=== PATIENT | female | born 1970 | race Caucasian/White ===

== ENCOUNTER → 2017-05-10 | Outpatient (CLI) | payer BC ==
[2017-05-10 09:26] LABS: HEMATOCRIT 36.1 % (37-47); MEAN CELL VOLUME 97.8 fL (80-100); MEAN CORPUSCULAR HEMOGLOBIN 31.2 pg (25-34); MEAN CORPUSCULAR HGB CONC 31.9 g/dl (32-36); MEAN PLATELET VOLUME 10.1 fL (7.4-10.4); PLATELET COUNT 237 K/uL (130-400); RED BLOOD COUNT 3.69 M/uL (4.2-5.4); WHITE BLOOD COUNT 4.58 K/uL (4.8-10.8)
[2017-05-10 09:38] LABS: CALCIUM 8.1 mg/dl (8.5-10.1)
[2017-05-10 09:44] LABS: ALT/SGPT 29 U/L (12-78); BLOOD UREA NITROGEN 15 mg/dl (7-18); BUN/CREATININE RATIO 17.1 (10-20); CARBON DIOXIDE 24 mmol/L (21-32); CHLORIDE 108 mmol/L (98-107); CHOLESTEROL 171 mg/dl (0-200); CREATININE 0.87 mg/dl (0.60-1.20); GLUCOSE 91 mg/dl (70-99); POTASSIUM 4.2 mmol/L (3.5-5.1); SODIUM 141 mmol/L (136-145); TRIGLYCERIDES 47 mg/dl (0-150); VERY LOW DENSITY LIPOPROT CALC 9 mg/dl
[2017-05-10 09:47] LABS: ALB/GLOB RATIO 1.1 (0.9-2); ALKALINE PHOSPHATASE 37 U/L (45-117); AST/SGOT 18 U/L (15-37); CHOLESTEROL/HDL RATIO 2.3; HDL CHOLESTEROL 73 mg/dl; LDL CHOLESTEROL CALCULATED 89 mg/dl
== END | disposition home or self-care (01) ==
LOC: C.LAB 08:15
PROVIDERS: ATTEND Internal Medicine
DX: Z00.00 Encounter for general adult medical examination without abnormal findings (principal)

== ENCOUNTER → 2017-05-19 | Outpatient (CLI) | payer BC ==
[2017-05-19 13:31] LABS: TOTAL IRON BINDING CAPACITY 334 mcg/dl (250-450)
[2017-05-19 14:52] LABS: LYME DISEASE AB IGG NEG (NEG)
[2017-05-19 14:56] LABS: LYME DISEASE AB IGM NEG (NEG)
== END | disposition home or self-care (01) ==
LOC: C.LAB 12:12
PROVIDERS: ATTEND Internal Medicine
DX: D64.9 Anemia, unspecified (principal); T14.8 Other injury of unspecified body region; W57.XXXA Bitten or stung by nonvenomous insect and other nonvenomous arthropods, initial encounter

== ENCOUNTER → 2017-09-07 | Outpatient (CLI) | payer BC | END | disposition home or self-care (01) | LOC: C.PAPS 15:55 | PROVIDERS: ATTEND Physician Assistant | DX: Z01.419 Encounter for gynecological examination (general) (routine) without abnormal findings (principal) ==

== ENCOUNTER → 2017-10-04 | Outpatient (CLI) | payer BC ==
--- NOTE | 2017-10-04 15:20 | MAMMOGRAPHY REPORT ---
BILATERAL FIRST EVER DIGITAL SCREENING MAMMOGRAM TOMOSYNTHESIS WITH CAD: 10/04/2017 CLINICAL HISTORY: Routine screening. Baseline exam. TECHNIQUE: Breast tomosynthesis in addition to standard 2D mammography was performed. Current study was also evaluated with a Computer Aided Detection (CAD) system. COMPARISON: No prior exams were available for comparison. BREAST COMPOSITION: The tissue of both breasts is heterogeneously dense, which may obscure small mas ses. FINDINGS: No suspicious masses, calcifications, or areas of architectural distortion are noted in ei ther breast. IMPRESSION: ACR BI-RADS CATEGORY 1: NEGATIVE There is no mammographic evidence of malignancy. A 1 year screening mammogram is recommended. The pa tient will receive written notification of the results. Approximately 10% of breast cancers are not detected with mammography. A negative mammographic report should not delay biopsy if a clinically suggestive mass is present. Shanique Don M.D. ah/:10/04/2017 15:08:50 Traffic Engineer: Rosmery LEIVA)(Kaylin), [facility] letter sent: Normal 1/2 BI-RADS Code: ACR BI-RADS Category 1: Negative
== END | disposition home or self-care (01) ==
LOC: C.MAMM 13:19
PROVIDERS: ATTEND Internal Medicine
DX: Z12.31 Encounter for screening mammogram for malignant neoplasm of breast (principal)

== ENCOUNTER → 2018-03-02 | Outpatient (CLI) | payer BC ==
[2018-03-02 13:48] LABS: BASO % 0.5 %; BASO ABS # 0.02 K/uL (0-0.2); EOS % 2.7 %; EOS ABS # 0.12 K/uL (0-0.5); HEMATOCRIT 36.3 % (37-47); IG# 0.01 K/uL (0.00-0.02); LYMPH % 31.8 %; LYMPH ABS # 1.39 K/uL (1.2-3.4); MEAN CELL VOLUME 95.5 fL (80-100); MEAN CORPUSCULAR HEMOGLOBIN 31.6 pg (25-34); MEAN CORPUSCULAR HGB CONC 33.1 g/dl (32-36); MEAN PLATELET VOLUME 10.2 fL (7.4-10.4); MONO % 9.2 %; NEUT % 55.6 %; NEUT ABS # 2.43 K/uL (1.4-6.5); PLATELET COUNT 249 K/uL (130-400); RED CELL DISTRIBUTION WIDTH CV 13.5 % (11.5-14.5); RED CELL DISTRIBUTION WIDTH SD 47.1 fL (36.4-46.3); WHITE BLOOD COUNT 4.37 K/uL (4.8-10.8)
[2018-03-02 13:51] LABS: INR 0.9 (0.9-1.1)
[2018-03-02 14:26] LABS: ALT/SGPT 356 U/L (12-78); AST/SGOT 134 U/L (15-37); BLOOD UREA NITROGEN 17 mg/dl (7-18); CALCIUM 8.9 mg/dl (8.5-10.1); CARBON DIOXIDE 24 mmol/L (21-32); CREATININE 0.89 mg/dl (0.60-1.20); GLUCOSE 99 mg/dl (70-99); POTASSIUM 4.4 mmol/L (3.5-5.1); SODIUM 138 mmol/L (136-145)
[2018-03-02 14:30] LABS: ALKALINE PHOSPHATASE 146 U/L (45-117); TOTAL PROTEIN 7.3 gm/dl (6.4-8.2); TRANSFERRIN 328 mg/dl (200-360)
[2018-03-02 16:33] LABS: HEP C IGG 13 YRS+OLDER_RFLX NEG (NEG)
[2018-03-06 09:01] LABS: ANA SCREEN TC 249X NEGATIVE (NEGATIVE); HEPATITIS A IGM TC 51813E NON-REACTIVE (NON-REACTIVE); HEPATITIS B CORE IGM TC51854R NON-REACTIVE (NON-REACTIVE)
== END | disposition home or self-care (01) ==
LOC: C.LAB1850 12:21
PROVIDERS: ATTEND Physician Assistant
DX: R23.3 Spontaneous ecchymoses (principal); L29.9 Pruritus, unspecified

== ENCOUNTER 2025-06-26 07:21 | Inpatient (IN) ==
[2025-06-26] MEDS: SODIUM CHLORIDE 0.9% 1,000 ML IV STA (07:36)
[2025-06-26] MEDS: ALBUT/IPRATROP 3MG/0.5MG NEB 3 ML VIAL NEB STA (07:37)
--- NOTE | 2025-06-26 07:40 | Emergency Department Note ---
Impression & Plan Hypoxia, Acute respiratory failure, Elevated troponin ED Provider Note CHIEF COMPLAINT: Shortness of breath HISTORY OF PRESENTING ILLNESS: The patient is a 55-year-old female who arrives to the emergency department for evaluation of acute onset shortness of breath. The patient states she was seen on June 24 for a kidney stone, and discharged home. Patient received 2 L normal saline, with trial of passage. She reports she also received IV morphine, and had a home pack of oxycodone provided. She states she noted some increasing shortness of breath over the last day. She reports today she was unable to ambulate without significant shortness of breath. She also reports she is feeling her heart racing. She is unable to speak in full sentences due to severe shortness of breath. She reports no cardiac, or respiratory history. She denies oxygen use at home. REVIEW OF SYSTEMS: See HPI for pertinent positives and pertinent negatives. ALLERGIES: See below MEDICATIONS: See below PAST MEDICAL HISTORY: See below PHYSICAL EXAM: VITALS: Vitals are noted on the nurse's note and reviewed by myself. Vital signs stable. GENERAL: 55-year-old female, in moderate acute distress, nondiaphoretic, well- developed well-nourished. SKIN: The skin was without rashes, erythema, edema, or bruising. HEAD: Normocephalic atraumatic. NECK: Supple without nuchal rigidity. No lymphadenopathy. Cervical spine is nontender. No JVD. HEART: Tachycardia with regular rhythm without murmurs gallops or rubs. LUNGS: Diminished lung sounds throughout, wheezing noted in the left apex. ABDOMEN: Positive bowel sounds x 4. Soft, nontender, without masses or organomegaly. Best sign negative. No guarding or rebound tenderness. MUSCULOSKELETAL: No muscle atrophy, erythema, or edema noted. Normal gait. Strength 5/5 throughout. NEURO: Patient was alert and oriented to person place and time. No focal neurological deficits. DIFFERENTIAL DIAGNOSIS: Reactive airway disease, pneumonia, pneumothorax, COPD, CHF, infections, cardiac ischemia, pulmonary embolism, musculoskeletal, gastrointestinal, as well as other pathologies. ED COURSE AND MEDICAL DECISION MAKING: HISTORY FROM INDEPENDENT HISTORIAN: Family at bedside serving as secondary historian. MEDICATIONS GIVEN: DuoNeb, 125 Solu-Medrol, 40 mg IV Lasix, 4 mg IV Zofran. MONITOR: Continuous threat monitoring analyst: Order was placed for continuous threat monitoring analyst. Patient was placed on the threat monitoring analyst and continuous pulse ox. Patient was noted to be in normal sinus rhythm at an initial rate of 119 bpm per my interpretation. EKG: EKG was interpreted by myself as sinus tachycardia at a rate of 119 bpm, no ST elevation, or depression. Previous for comparison from June 24, 2025 shows the ventricular rate has increased by 39 bpm. INTERPRETATION OF LABS: I interpreted the labs with full lab results as below in the lab section of this note. Pertinent lab results discussed in the MDM section below. INTERPRETATION OF IMAGING: Imaging studies were interpreted by myself and read by radiology as per the imaging section of this note. MDM SUMMARY: The patient is a pleasant, 55-year-old female who arrives to the emergency department for evaluation of the above-stated complaint. Patient was visibly in distress upon arrival. She was immediately placed on nasal cannula. Saline lock was established, lab work was obtained. CBC shows no leukocytosis, with a slight anemia. New thrombocytopenia present, 58. Previous on 03/21/1952. PT/INR, 13.0/1.2, PTT 38. D-dimer obtained 29,480. CMP shows slight hyponatremia at 132. Anion gap 13, BUN 44, creatinine 2.54 consistent with JAE. Calcium 8.1, total bilirubin 1.7, alkaline phosphatase 225. Initial troponin 900, repeat 747.4, BNP 1084. Upper respiratory viral panel negative. Upon initial examination, the patient was wheezing and provided a DuoNeb treatment, as well as IV steroids. Chest x-ray per my interpretation showed findings consistent with right pleural effusion. The patient began to decline on nasal cannula and was placed on BiPAP. 40 mg of IV Lasix was administered, as well as 4 mg of IV Zofran. CTA imaging of the chest was obtained, to rule out pulmonary embolism, which showed trace pleural effusions, mild interstitial pulmonary edema, and low suspicion solid pulmonary nodules. CT imaging of the abdomen and pelvis was obtained, which shows the previously noted 5 mm right renal calculus which was now passed into the urinary bladder. There is mild right hydronephrosis, however improved. The patient was admitted to the [facility] hospitalist group for further evaluation and treatment. Please refer to their documentation for further patient care. DIAGNOSIS: Hypoxia, respiratory failure, elevated troponin I have personally spent greater than 30 minutes of critical care time in the direct management of this patient. This includes bedside care, interpretation of diagnostic studies, and testing, discussion with consultants, patient, and family members, and other required patient management activities. This 30 minutes is in excess of all separately billable procedures. The chart was completed utilizing [employer] Speech voice recognition software. Grammatical errors, random word insertions, pronoun errors, and incomplete sentences are an occasional consequence of this system due to software limitations, ambient noise, and hardware issues. Any formal questions or concerns about the content, text, or information contained within the body of this dictation should be directly addressed to the provider for clarification. Past Med/Surg History Problem List (Updated 06/28/25 @ 17:46 by TOMMY Curtis) Elevated troponin (Acute) Acute respiratory failure (Acute) Hypoxia (Acute) Bacteremia Acute hypoxic respiratory failure DIC (disseminated intravascular coagulation) Thrombocytopenia JAE (acute kidney injury) Hypoxemia Left thyroid nodule FH: thyroid disease Goiter Palpitations Tubular adenoma of colon Esophageal dysphagia Arthritis of both knees Chiari malformation type I (Acute) Aqueductal stenosis (Acute) Anemia (Acute) Abnormal liver function SOB (shortness of breath) Medical History Ureterolithiasis Skin abrasion Dizziness History of colon polyps Abdominal discomfort PAIN UNDER RIGHT SIDE OF RIBS - REASON FOR UPCOMING PROCEDURE Bloating REASON FOR UPCOMING PROCEDURE Indigestion REASON FOR UPCOMING PROCEDURE Chiari malformation PT DENIES Elevated LFTs PT DENIES Surgical History History of colonoscopy History of oral surgery Family History Mother Heart disease Stroke Father Heart disease Denies family history of Ovarian cancer Diabetes Myocardial infarction Breast cancer Colorectal cancer Social History Smoking Status: Never smoker Second Hand Exposure: No; Do You Dip or Chew Tobacco: No; Hx Alcohol Use: Yes Alcohol type: hard liquor Hx Substance Use: No Preferred Language: [place] Communication Ability: Effective Visual Impairment: No Limitations Hearing Ability: Normal Economics Department Chair Required: No Beliefs That Will Affect Care: None marital status: Current Living Situation: Spouse Current Living Situation Comment: 2 story house current occupational status: employed current occupation: self employed Feels Safe at Home: Yes Childhood Exposure to Second-Hand Smoke: No Physical Activity Frequency: 3-4 Times per Week Seatbelt Use: always Assistive Devices: None Allergies Allergies Allergy/AdvReac Type Severity Reaction Status Date / Time No Known Allergies Allergy Verified 06/26/25 09:17 Home Meds Home Medications Medication Instructions Recorded Confirmed lisinopril 10 mg tablet 10 mg PO DAILY 06/26/25 06/26/25 meloxicam 7.5 mg tablet 7.5 mg PO DAILY PRN Pain 06/26/25 06/26/25 Previous Rx's Medication Instructions Recorded cefdinir 300 mg capsule 300 mg PO Q12H #24 caps 06/28/25 Results & Data (ED) Vital Signs Vital Signs - 24 hr 06/26/25 07:22 06/26/25 07:22 06/26/25 07:22 Temperature 36.6 C Temperature Source Temporal Artery Scan Pulse Rate 119 H Pulse Rate [Apical] Respiratory Rate 18 Respiratory Effort / Characteristics Respiratory Depth Respiratory Pattern Blood Pressure 140/93 Blood Pressure [Right Arm] Blood Pressure Mean 108 Blood Pressure Mean [Right Arm] Blood Pressure Position [Right Arm] Pulse Oximetry 91 82 L 82 L Oxygen Delivery Method Room Air Room Air Oxygen Flow Rate Fraction of Inspired Oxygen Sepsis Recent Fever Within 48 Hours No Sepsis New/Unexplained Change in Mental Status N/A Sepsis Action Taken by Nursing No Action Required 06/26/25 07:28 06/26/25 07:30 06/26/25 07:53 Temperature Temperature Source Pulse Rate 119 H Pulse Rate [Apical] Respiratory Rate Respiratory Effort / Characteristics Respiratory Depth Respiratory Pattern Blood Pressure Blood Pressure [Right Arm] Blood Pressure Mean Blood Pressure Mean [Right Arm] Blood Pressure Position [Right Arm] Pulse Oximetry 95 79 L Oxygen Delivery Method Nasal Cannula Nebulizer Oxygen Flow Rate 6 Fraction of Inspired Oxygen Sepsis Recent Fever Within 48 Hours Sepsis New/Unexplained Change in Mental Status Sepsis Action Taken by Nursing 06/26/25 07:53 06/26/25 07:57 06/26/25 07:58 Temperature Temperature Source Pulse Rate 113 H Pulse Rate [Apical] 111 H Respiratory Rate 30 H Respiratory Effort / Characteristics Non-Labored Spontaneous Respiratory Depth Normal Respiratory Pattern Tachypnea Blood Pressure Blood Pressure [Right Arm] 148/103 H Blood Pressure Mean Blood Pressure Mean [Right Arm] 118 Blood Pressure Position [Right Arm] Semi-fowlers Pulse Oximetry 99 99 98 Oxygen Delivery Method Non-rebreather BiPAP Oxygen Flow Rate 15 Fraction of Inspired Oxygen 40 Sepsis Recent Fever Within 48 Hours Sepsis New/Unexplained Change in Mental Status Sepsis Action Taken by [facility] Medications Current Medication List: was personally reviewed by me Laboratory Data Attestation: I reviewed the patient's lab results. 06/28/25 06:00 06/28/25 06:00 Lab Results 06/26/25 06/26/25 06/26/25 Range/Units 07:40 08:09 09:16 WBC 7.17 (4.8-10.8) K/ul RBC 3.71 L (4.20-5.40) M/uL Hgb 11.4 L (12.0-16.0) g/dl Hct 33.5 L (37.0-47.0) % MCV 90.3 (80.0-100.0) fL MCH 30.7 (25.0-34.0) pg MCHC 34.0 (32.0-36.0) g/dL RDW Std Deviation 43.9 (36.4-46.3) fL RDW Coeff of Sebastian 13.3 (11.5-14.5) % Plt Count 58 L (130-400) K/uL MPV 10.2 (9.4-12.4) fL Immature Gran % (Auto) 0.3 % Neut % (Auto) 92.1 % Lymph % (Auto) 4.9 % Shoshone % (Auto) 1.8 % Eos % (Auto) 0.1 % Baso % (Auto) 0.8 % Neut # (Auto) 6.60 H (1.40-6.50) K/uL Lymph # (Auto) 0.35 L (1.20-3.40) K/uL Shoshone # (Auto) 0.13 (0.11-0.59) K/uL Eos # (Auto) 0.01 (0.00-0.50) K/uL Baso # (Auto) 0.06 (0.00-0.20) K/uL Immature Gran # (Auto) 0.02 (0.01-0.20) K/uL Absolute Nucleated RBC 0.02 (0.00-0.12) K/uL Nucleated RBC % (auto) 0.3 % Toxic Granulation 3+ Toxic Vacuolation 3+ Dohle Bodies 2+ Platelet Estimate Decreased L (Normal) Polychromasia 1+ PT 13.0 H (9.0-12.0) Seconds INR 1.2 H (0.9-1.1) APTT 38 H (21-31) Seconds PTT Ratio 1.4 D-Dimer 38228 H* (0-500) ug/L FEU Sodium 132 L (136-145) mmol/L Potassium 3.7 (3.5-5.1) mmol/L Chloride 99 (98-107) mmol/L Carbon Dioxide 20 L (21-32) mmol/L Anion Gap 13 H (3-11) BUN 44 H (6-23) mg/dl Creatinine 2.54 H (0.6-1.2) mg/dl Est Cr Clr Drug Dosing 31.3 ml/min eGFR 21.74 BUN/Creatinine Ratio 17.3 (10-20) Glucose 89 (70-99(Fasting)) mg/dl Calcium 8.1 L (8.6-10.3) mg/dl Total Bilirubin 1.7 H (0.2-1.0) mg/dl AST 39 (13-39) U/L ALT 30 (7-52) U/L Alkaline Phosphatase 225 H (34-104) U/L Troponin I High Sens 900.1 H* 747.4 H* (0-14) pg/ml B-Natriuretic Peptide 1084 H (0-100) pg/ml Total Protein 6.6 (6.0-8.3) gm/dl Albumin 3.6 (3.4-5.0) gm/dl Globulin 3.0 (2.5-4.0) gm/dl Albumin/Globulin Ratio 1.2 (0.9-2) Lipase 5 L (11-82) U/L Adenovirus (PCR) Not Detected (NotDetected) B. pertussis DNA (PCR) Not Detected (NotDetected) B.parapertussis DNA PCR Not Detected (NotDetected) C. pneumoniae DNA (PCR) Not Detected (NotDetected) Coronavirus OC43 (PCR) Not Detected (NotDetected) Coronavirus HKU1 (PCR) Not Detected (NotDetected) Coronavirus 229E (PCR) Not Detected (NotDetected) SARS-CoV-2 (PCR) Not Detected (NotDetected) Coronavirus NL63 (PCR) Not Detected (NotDetected) Human Metapneumovir PCR Not Detected (NotDetected) Influenza Type A (PCR) Not Detected (NotDetected) Influenza Type B (PCR) Not Detected (NotDetected) M. pneumoniae (PCR) Not Detected (NotDetected) Parainfluenza 1 (PCR) Not Detected (NotDetected) Parainfluenza 2 (PCR) Not Detected (NotDetected) Parainfluenza 3 (PCR) Not Detected (NotDetected) Parainfluenza 4 (PCR) Not Detected (NotDetected) RSV (PCR) Not Detected (NotDetected) Entero/Rhino (PCR) Not Detected (NotDetected) Administered Medications Discontinued Medications Albuterol (Albut/Ipratrop 3mg/0.5mg Neb 3 Ml Vial) Confirm Administered Dose 3 ml .ROUTE .STK-MED ONE Stop: 06/26/25 07:31 Last Admin: 06/26/25 07:41 Dose: Not Given Documented By: LIZANDRO Albuterol (Albut/Ipratrop 3mg/0.5mg Neb 3 Ml Vial) 3 ml NEB NOW STA; Protocol Stop: 06/26/25 07:33 Last Admin: 06/26/25 07:37 Dose: 3 ml Documented By: LISA Furosemide (Furosemide 40 Mg/4 Ml Vial) 40 mg IV ONE ONE Stop: 06/26/25 07:52 Last Admin: 06/26/25 08:02 Dose: 40 mg Documented By: farshad Sodium Chloride (Nss) 1,000 mls @ 999 mls/hr IV .Q1H1M STA Stop: 06/26/25 08:28 Last Infusion: 06/26/25 16:55 Dose: Infused Documented By: Infusion: 06/26/25 08:11 Dose: 0 mls/hr Documented By: Admin: 06/26/25 07:36 Dose: 999 mls/hr Documented By: LISA Famotidine (Pepcid 20mg Iv Push) 20 mg in 5 mls @ 2.5 mls/min IV Q12H JESSICA Stop: 07/27/25 00:00 Last Admin: 06/28/25 11:45 Dose: 2.5 mls/min Documented By: Admin: 06/27/25 23:04 Dose: 2.5 mls/min Documented By: Admin: 06/27/25 11:37 Dose: 2.5 mls/min Documented By: Admin: 06/27/25 00:57 Dose: 2.5 mls/min Documented By: YOAV Famotidine (Pepcid 20mg Iv Push) 20 mg in 5 mls @ 2.5 mls/min IV NOW STA Stop: 06/26/25 12:00 Last Admin: 06/26/25 13:42 Dose: Not Given Documented By: LOUISA Prochlorperazine 5 mg/ Syringe 5 mls @ 5 mls/min IV Q6H PRN PRN Reason: Breakthrough Nausea/Vomiting Stop: 07/26/25 11:55 Last Admin: 06/26/25 15:22 Dose: 5 mls/min Documented By: JOE Pantoprazole Sodium (Protonix) 40 mg in 10 mls @ 5 mls/min IV DAILY JESSICA Stop: 07/27/25 08:59 Last Admin: 06/28/25 08:48 Dose: 5 mls/min Documented By: Admin: 06/27/25 08:07 Dose: 5 mls/min Documented By: SHAMEKA Sodium Chloride (Nss) 1,000 mls @ 125 mls/hr IV .Q8H JESSICA Stop: 06/27/25 07:05 Last Infusion: 06/27/25 08:15 Dose: Infused Documented By: Admin: 06/27/25 00:57 Dose: 150 mls/hr Documented By: Infusion: 06/27/25 00:13 Dose: Infused Documented By: Admin: 06/26/25 17:32 Dose: 150 mls/hr Documented By: JOE Piperacillin Sod/Tazobactam Sod (Zosyn) 4.5 gm in 100 mls @ 25 mls/hr IV Q8H JESSICA; Protocol Stop: 06/29/25 05:59 Last Infusion: 06/28/25 10:15 Dose: Infused Documented By: Admin: 06/28/25 05:19 Dose: 25 mls/hr Documented By: Infusion: 06/28/25 01:10 Dose: Infused Documented By: Admin: 06/27/25 21:08 Dose: 25 mls/hr Documented By: Infusion: 06/27/25 17:56 Dose: Infused Documented By: Admin: 06/27/25 13:43 Dose: 25 mls/hr Documented By: Infusion: 06/27/25 10:30 Dose: Infused Documented By: Admin: 06/27/25 06:28 Dose: 25 mls/hr Documented By: HDC Piperacillin Sod/Tazobactam Sod (Zosyn) 4.5 gm in 100 mls @ 200 mls/hr IV ONE ONE; Protocol Stop: 06/26/25 23:59 Last Infusion: 06/27/25 02:31 Dose: Infused Documented By: Admin: 06/27/25 00:56 Dose: 200 mls/hr Documented By: HDC Ceftriaxone Sodium (Rocephin) 2,000 mg in 50 mls @ 100 mls/hr IV NOW STA Stop: 06/28/25 11:46 Last Infusion: 06/28/25 12:45 Dose: Infused Documented By: Admin: 06/28/25 11:45 Dose: 100 mls/hr Documented By: OO Ioversol (Optiray 320 125ml) 119 ml IV ONCE ONE Stop: 06/26/25 10:40 Last Admin: 06/26/25 10:39 Dose: 119 ml Documented By: SAMI Methylprednisolone (Methylprednisolone 125 Mg/2 Ml Vial) Confirm Administered Dose 125 mg .ROUTE .STK-MED ONE Stop: 06/26/25 07:31 Last Admin: 06/26/25 07:41 Dose: Not Given Documented By: LIZANDRO Methylprednisolone (Methylprednisolone 125 Mg/2 Ml Vial) 125 mg IV NOW STA Stop: 06/26/25 07:33 Last Admin: 06/26/25 07:37 Dose: 125 mg Documented By: LISA Ondansetron HCl (Ondansetron Inj 2 Mg/Ml 2 Ml Vial) 4 mg IV NOW STA Stop: 06/26/25 09:10 Last Admin: 06/26/25 09:12 Dose: 4 mg Documented By: LOUISA Ondansetron HCl (Ondansetron Inj 2 Mg/Ml 2 Ml Vial) 4 mg IV Q6H JESSICA Stop: 07/26/25 13:28 Last Admin: 06/28/25 08:49 Dose: Not Given Documented By: Admin: 06/28/25 01:55 Dose: 4 mg Documented By: Admin: 06/27/25 21:08 Dose: 4 mg Documented By: Admin: 06/27/25 13:43 Dose: 4 mg Documented By: Admin: 06/27/25 08:08 Dose: 4 mg Documented By: Admin: 06/27/25 02:35 Dose: 4 mg Documented By: Admin: 06/26/25 20:30 Dose: 4 mg Documented By: Admin: 06/26/25 14:29 Dose: 4 mg Documented By: MMF Imaging Data Attestation: I personally reviewed and interpreted this imaging study as follows: Discharge Plan Visit Data Patient Disposition: Admitted As Inpatient Condition: Critical Discharge Instructions Interventions: ED Discharge Assessment Last Done: 06/26/25 13:30
[2025-06-26] MEDS: ALBUT/IPRATROP 3MG/0.5MG NEB 3 ML VIAL ONE (07:41)
[2025-06-26] MEDS: FUROSEMIDE 40 MG/4 ML VIAL IV ONE (08:02)
[2025-06-26 08:11] LABS: INR 1.2 (0.9-1.1); Partial Thromboplastin Time 38 Seconds (21-31); Prothrombin Time 13.0 Seconds (9.0-12.0)
[2025-06-26 08:37] LABS: Alanine Aminotransferase 30.0 U/L (7-52); Albumin Globulin Ratio 1.2 (0.9-2); Alkaline Phosphatase 225.0 U/L (34-104); Anion Gap 13.0 (3-11); Bilirubin,Total 1.7 mg/dl (0.2-1.0); Blood Urea Nitrogen 44.0 mg/dl (6-23); Calcium 8.1 mg/dl (8.6-10.3); Carbon Dioxide 20.0 mmol/L (21-32); Chloride 99.0 mmol/L (98-107); Creatinine Clr Calc Pharmacy 31.3 ml/min; Globulin 3.0 gm/dl (2.5-4.0); Glucose 89.0 mg/dl (70-99(Fasting)); Lipase 5.0 U/L (11-82); Potassium 3.7 mmol/L (3.5-5.1); Sodium 132.0 mmol/L (136-145); Total Protein 6.6 gm/dl (6.0-8.3)
[2025-06-26 08:38] LABS: Hematocrit (blood only) 33.5 % (37.0-47.0); Hemoglobin 11.4 g/dl (12.0-16.0); Mean Corpuscular Hemoglobin 30.7 pg (25.0-34.0); Mean Corpuscular Volume 90.3 fL (80.0-100.0); Platelet Count 58 K/uL (130-400); RDW Standard Deviation 43.9 fL (36.4-46.3); Red Blood Count 3.71 M/uL (4.20-5.40); White Blood Count 7.17 K/ul (4.8-10.8)
[2025-06-26 08:39] LABS: Dohle Bodies 2+; Immature Granulocytes # (auto) 0.02 K/uL (0.01-0.20); Immature Granulocytes % (auto) 0.3 %; Polychromasia 1+; Toxic Granulation 3+; Toxic Vacuolation 3+
--- NOTE | 2025-06-26 08:40 | XRay Report ---
EXAM: XR chest 1V portable CLINICAL HISTORY: Chest pain, nonspecific TECHNIQUE: An X-ray image of the chest is obtained in AP projection. COMPARISON: No prior studies are available for comparison. FINDINGS: Pulmonary Parenchyma: Raised right hemidiaphragm with blunting of right costophrenic recess. Small atelectatic band traversing in the right lower zone. No evidence of pulmonary consolidation/focal opacity seen. Heart and Mediastinum: Possible cardiomegaly. No mediastinal widening or masses. No hilar or mediastinal lymphadenopathy. Bony Thorax: Bony thorax appears intact without fractures or deformities. Soft Tissues: Soft tissues overlying the chest wall are unremarkable. IMPRESSION: 1. Raised right hemidiaphragm with blunting of right costophrenic recess. could be due to pleural effusion/ thickening 2. No evidence of pulmonary consolidation/focal opacity seen. Electronically signed by Ricki Broderick 06-26-2025 08:39 AM
[2025-06-26 09:04] LABS: Chlamydia pneumoniae PCR Not Detected (NotDetected); Coronavirus 229E PCR Not Detected (NotDetected); Coronavirus CoV-2 (COVID19)PCR Not Detected (NotDetected); Coronavirus HKU1 PCR Not Detected (NotDetected); Coronavirus NL63 PCR Not Detected (NotDetected); Coronavirus OC43PCR Not Detected (NotDetected); Human Metapneumovirus PCR Not Detected (NotDetected); Parainfluenza Virus 1 PCR Not Detected (NotDetected); Parainfluenza Virus 2 PCR Not Detected (NotDetected); Parainfluenza Virus 3 PCR Not Detected (NotDetected); Parainfluenza Virus 4 PCR Not Detected (NotDetected); Respiratory Syncytial VirusPCR Not Detected (NotDetected); Rhinovirus/Enterovirus PCR Not Detected (NotDetected)
--- NOTE | 2025-06-26 09:07 | CT Scan Report ---
ABDOMEN AND PELVIS CT WITHOUT CONTRAST CT DOSE: 1622.83 mGy.cm HISTORY: Acute kidney injury JAE TECHNIQUE: Multiaxial CT images of the abdomen and pelvis were performed without contrast. A dose lo wering technique was utilized adhering to the principles of ALARA. COMPARISON STUDY: CT 06/24/2025 FINDINGS: Trace pleural effusions with dependent bibasilar densities favoring atelectasis. Mild right hemidiaphragmatic elevation. No pneumatosis or pneumoperitoneum. The unenhanced spleen, pancreas, gallbladder and adrenal glands are unremarkable. Hepatic steatosis. Mild nonspecific bilateral perinephric stranding. Renal sinus cysts noted within the bilateral kidney s. 7 mm cortical calcification involves the midpole right kidney and image 171, associated with a cys t seen on the prior study. Mild right-sided hydroureteronephrosis has improved from prior. Previous n oted right ureteral calculus is now present within the dependent urinary bladder on image 3 9 series 3 measuring 5 mm. Urinary bladder is partially decompressed. Increased attenuation noted within the b ilateral renal collecting systems. No abdominal aortic aneurysm or lymphadenopathy. No bowel obstruction or bowel wall thickening. Normal appendix. No acute fracture. IMPRESSION: 1. Previously noted 5 mm right renal calculus has now passed into the urinary bladder. Mild right hyd ronephrosis has improved. 2. Increased attenuation within the bilateral renal collecting system suggestive of retained contrast . Blood products considered less likely. Correlate with urinalysis. 3. Hepatic steatosis. 4. Trace pleural effusions with mild bibasilar atelectasis. ACT 112: Negative or not required by law. The above report was generated using voice recognition software. It may contain grammatical, syntax o r spelling errors. Electronically signed by: Florentino Manriquez M.D. 06/26/2025 9:05 AM
[2025-06-26] MEDS: ONDANSETRON INJ 2 MG/ML 2 ML VIAL IV STA (09:12)
[2025-06-26] MEDS: OPTIRAY 320 125ml IV ONE (10:39)
--- NOTE | 2025-06-26 10:44 | History & Physical Report ---
Date of Service June 26, 2025 Assessment & Plan (1) Hypoxemia: Plan: -55 y/o female pt, arrived to the ER with SOB and hypoxemia O2 sat of 79, at which time nasal canula at 4L/ min was administered - She was unable to stabilize on nasal canula, Bipap added per protocol. -Pt O2 saturation prior to admit status stabilized and placed back on nasal canula with O2 sat of 91 to present -Labs taken in ER elicited a D-Dimer of 29,480 for which concern of a PE was elicited -Chest CTA ordered -- no findings of PE -Bilater Lower Extremity Venous Dopler Ultrasound and Chest X-ray, also taken to further rule out. -Echo taken was unremarkable as to ventricular function, with ejection fraction of 55-60%. EKG findings suggested Sinus Tachycardia with unremarkable findings as to wave pattern. Curiously, Troponin was noted at 900, then 747 on second reading. Also, B- Natriuretic Peptide was elevated to 1084, -Additionally, CT of the Abdomen found hepatic steatosis, movement of the previous kidney stone to the bladder, and increased attenuation in collecting ducts which will be identified for any significance on urinalysis Plan for tomorrow -- peripheral smear, cbc with diff, and bmp to identify any signs of infection/malignancy (2) Thrombocytopenia: Plan: -Possible causes include infection/malignancy as WBCs and ALK Phos, elevated at 15.1 and 137 respectively. -Platelet Count 46 k/uL -Elevated PT, INR, at 13, and 38 -Peripheral smear labs ordered (3) DIC (disseminated intravascular coagulation): Plan: -Possible causes include infection/malignancy as WBCs and ALK Phos, elevated at 15.1 and 137 respectively. -PT and aPTT, at 13, and 38 seconds -D dimer 29,480 -Platelet Count 46 k/uL Peripheral Smear and Fibrinogen ordered (4) JAE (acute kidney injury): Plan: -Cr. increase from 1.14 on 06/24 (monday) to 2.54 (today) Fluids given to support kidney function at 150 ml/hr maintenance rate -tomorrow reevaluate Cr. and further labs for isolation as to cause of disturbance History of Present Illness Primary Care Provider: Aury Alicea MD Pt is a 55 y/o woman pmh of hypertension and hypoxia arrives to the ER this morning with SOB. Recent pmh is significant for an emergency room visit and hospital stay on 06/24 for abdominal pain, nausea and vomiting, due to a 4mm ureteral stone. Pt identified that she vomited 3 times yesterday, and that her last meal was Monday. She has not travelled anywhere in recent weeks, and her diet has not changed. Allergies Allergy/AdvReac Type Severity Reaction Status Date / Time No Known Allergies Allergy Verified 06/26/25 09:17 Home Medications Medication Instructions Recorded Confirmed Type lisinopril 10 mg tablet 10 mg PO DAILY 06/26/25 06/26/25 History meloxicam 7.5 mg tablet 7.5 mg PO DAILY PRN Pain 06/26/25 06/26/25 History Past Med/Surg History Problem List DIC (disseminated intravascular coagulation) Thrombocytopenia JAE (acute kidney injury) Hypoxemia Ureterolithiasis (Acute) Nausea & vomiting (Acute) Abdominal pain (Acute) Left thyroid nodule FH: thyroid disease Goiter Palpitations Helicobacter positive gastritis Tubular adenoma of colon Esophageal dysphagia Arthritis of knee, right Arthritis of both knees Chiari malformation type I (Acute) Aqueductal stenosis (Acute) Anemia (Acute) Health care maintenance Weight gain Abnormal liver function Hyperglycemia Cough SOB (shortness of breath) Dysphagia Colon cancer screening Medical History Skin abrasion Dizziness History of colon polyps Abdominal discomfort PAIN UNDER RIGHT SIDE OF RIBS - REASON FOR UPCOMING PROCEDURE Bloating REASON FOR UPCOMING PROCEDURE Indigestion REASON FOR UPCOMING PROCEDURE Chiari malformation PT DENIES Elevated LFTs PT DENIES Surgical History History of colonoscopy History of oral surgery Family History Mother Heart disease Stroke Father Heart disease Denies family history of Ovarian cancer Diabetes Myocardial infarction Breast cancer Colorectal cancer Social History Smoking Status: Never smoker Second Hand Exposure: No; Do You Dip or Chew Tobacco: No; Hx Alcohol Use: Yes Alcohol type: hard liquor Hx Substance Use: No Preferred Language: Kazakh Communication Ability: Effective Visual Impairment: No Limitations Hearing Ability: Normal Distribution Sales Manager Required: No Beliefs That Will Affect Care: None marital status: Current Living Situation: Spouse Current Living Situation Comment: 2 story house current occupational status: employed current occupation: self employed Feels Safe at Home: Yes Childhood Exposure to Second-Hand Smoke: No Physical Activity Frequency: 3-4 Times per Week Seatbelt Use: always Assistive Devices: None Review of Systems Review of Systems: All systems reviewed & are unremarkable except as noted in HPI & below Physical Exam Constitutional: WD/WN, vitals as above Eyes: PERRL, conjunctivae normal, anicteric sclerae ENMT: external ear and nose normal, oropharynx normal Neck: trachea midline, no thyromegaly Respiratory: + labored breathing Cardiovascular: RRR, no murmur, no edema Gastrointestinal (Abdomen): Inspection/Auscultation: abdomen normal to inspection Skin: no rashes, warm and dry Psychiatric: A+Ox3, euthymic affect Lymphatic: no cervical or axillary lymphadenopathy Results & Data Results & Data Vital Signs (Past 12 Hours) Vital Signs Temp Pulse Pulse Resp BP BP Pulse Ox 06/26/25 10:00 103 H 19 118/73 94 06/26/25 08:44 110 H 26 H 121/78 99 06/26/25 07:58 113 H 30 H 98 06/26/25 07:57 111 H 148/103 H 99 06/26/25 07:53 99 06/26/25 07:53 79 L 06/26/25 07:30 119 H 06/26/25 07:28 95 06/26/25 07:22 82 L 06/26/25 07:22 82 L 06/26/25 07:22 36.6 C 119 H 18 140/93 91 O2 Del Method O2 Flow Rate FiO2 06/26/25 10:00 BiPAP 06/26/25 08:44 BiPAP 06/26/25 07:58 40 06/26/25 07:57 BiPAP 06/26/25 07:53 Non-rebreather 15 06/26/25 07:53 Nebulizer 06/26/25 07:30 06/26/25 07:28 Nasal Cannula 6 06/26/25 07:22 Room Air 06/26/25 07:22 Room Air 06/26/25 07:22 Supervising Physician Co-Signing Physician Notes I personally examined the patient and verified wolfe points of history and exam, discussed case, and agree with decision making and plan documented by Dr. Sutherland. Patient is a 55-year-old female with past medical history of hypertension and hepatic steatosis presenting with dyspnea and weakness. Patient had acute hypoxic respiratory failure requiring BiPAP initially. She has been tachycardic. D-dimer elevated. CT angiogram and bilateral venous Dopplers performed and negative. Troponin and BNP elevated. Acute thrombocytopenia with elevated PT, AP TT and INR suggestive of DIC. Echo with EF 55-60%, mild LVH, normal LV systolic function, and otherwise unremarkable. She was seen in emergency room 06/24/2025 for abdominal pain with nausea and vomiting, was given IV fluids, acetaminophen, morphine, ketorolac, ondansetron, and famotidine, and diagnosed with ureterolithiasis. Patient reports she was lying around in bed feeling weak since evaluation in the ED. She denies any infectious symptoms, denies trauma or additional new medications at home. On exam patient, patient on nasal cannula with mild increased WOB, conjunctiva clear, mucosa dry, diffuse decreased breath sounds lower lobes without rhonchi or wheeze, tachycardic, no murmur appreciated, bowel sounds present and no tenderness in the abdomen, lower extremities with trace edema. JAE present, on IVF, monitor closely. Peripheral smear and urine culture. Sons at bedside and updated. Resident Activity Tracking Resident Involvement: Resident Care Provided Care Provided: Adult Hospital Medicine
--- NOTE | 2025-06-26 11:07 | CT Scan Report ---
CT angio chest PE protocol CT DOSE: 812.98 mGy.cm HISTORY: 55 years-old Female with PE. Acute shortness of breath TECHNIQUE: Multiple CTA images of the chest were obtained after the intravenous administration of 119 ml Optiray. Coronal and sagittal MIPS were obtained from the axial data set and were submitted for review. All measurements were obtained according to NASCET criteria. A dose lowering technique was u tilized adhering to the principles of ALARA. COMPARISON: CT abdomen and pelvis of same day and also 06/24/2025 FINDINGS: CTA: Heart is mildly enlarged. No pericardial effusion. Unremarkable thoracic aorta. No pulmonary emboli i dentified. CT CHEST: Unremarkable thyroid. Trace pleural effusions with dependent bibasilar atelectasis. Mild right diaphr agmatic elevation. Mild intralobular septal thickening. There are a few subpleural nodular foci in th e right lung base measuring up to 4 mm which are of low suspicion. Central airways appear patent. CT abdomen and pelvis dictated separately. Hepatic steatosis. Unremarkable soft tissues. No acute fra cture. IMPRESSION: 1. No pulmonary emboli identified. 2. Trace pleural effusions with mild dependent bibasilar atelectasis. 3. Equivocal mild interstitial pulmonary edema. 4. Hepatic steatosis. 5. Low suspicion solid pulmonary nodules measure up to 4 mm. ACT 112: Negative or not required by law. The above report was generated using voice recognition software. It may contain grammatical, syntax o r spelling errors. Electronically signed by: Florentino Manriquez M.D. 06/26/2025 11:04 AM
--- NOTE | 2025-06-26 11:31 | XCELERA ---
[id number] [id number]
--- NOTE | 2025-06-26 11:53 | Electrocardiogram Report ---
Test Reason : Blood Pressure : */* mmHG Vent. Rate : 119 BPM Atrial Rate : 119 BPM P-R Int : 120 ms QRS Dur : 98 ms QT Int : 350 ms P-R-T Axes : -23 -14 -14 degrees QTcB Int : 492 ms Sinus tachycardia Minimal voltage criteria for LVH, may be normal variant Borderline ECG When compared with ECG of 24-Jun-2025 03:42, Vent. rate has increased by 39 bpm Confirmed by Garrett Murray ([id number]) on 06/26/2025 11:53:30 AM Referred By: REFERRED SELF Confirmed By: Garrett Murray
[2025-06-26] MEDS ORDERED: ALUMINUM/MAGNESIUM SUSP 30 ML UDC PO PRN (11:56)
[2025-06-26] MEDS ORDERED: PROCHLORPERAZINE 5 MG in SYRINGE 4 ML IV PRN (11:56)
[2025-06-26] MEDS ORDERED: MELATONIN 3 MG TAB PO PRN (13:29)
[2025-06-26] MEDS ORDERED: POLYETHYLENE (MIRALAX) 17 GM PACK PO PRN (13:29)
[2025-06-26] MEDS ORDERED: ACETAMINOPHEN 325 MG TAB PO PRN (13:29)
[2025-06-26] MEDS: FAMOTIDINE 20MG IV PUSH 20 MG/5 ML SYR IV STA (13:42)
--- NOTE | 2025-06-26 13:49 | Ultrasound Report ---
BILATERAL LOWER EXTREMITY VENOUS DOPPLER HISTORY: elevated d dimer; SOB COMPARISON STUDY: CT chest of same day FINDINGS: Mild subcutaneous edema. There is normal compressibility, flow, and augmentation within the bilateral lower extremity deep venous systems. IMPRESSION: No DVT within the right or left lower extremity. ACT 112: Negative or not required by law. Electronically signed by: Florentino Manriquez M.D. 06/26/2025 1:48 PM
[2025-06-26] MEDS: ONDANSETRON INJ 2 MG/ML 2 ML VIAL IV SCH (14:29)
[2025-06-26] MEDS: PROCHLORPERAZINE 5 MG in SYRINGE 4 ML IV PRN (15:22)
[2025-06-26] MEDS: SODIUM CHLORIDE 0.9% 1,000 ML IV SCH (17:32)
[2025-06-26 17:33] LABS: Hematocrit (blood only) 34.3 % (37.0-47.0); Hemoglobin 11.6 g/dl (12.0-16.0); Mean Corpuscular Hemoglobin 30.8 pg (25.0-34.0); Mean Corpuscular Volume 91.0 fL (80.0-100.0); Platelet Count 46 K/uL (130-400); RDW Standard Deviation 45.1 fL (36.4-46.3); Red Blood Count 3.77 M/uL (4.20-5.40); White Blood Count 15.51 K/ul (4.8-10.8)
[2025-06-26 17:38] LABS: Anion Gap 13.0 (3-11); Bilirubin,Total 1.4 mg/dl (0.2-1.0); Calcium 8.2 mg/dl (8.6-10.3); Carbon Dioxide 20.0 mmol/L (21-32); Chloride 101.0 mmol/L (98-107); Potassium 4.1 mmol/L (3.5-5.1); Sodium 134.0 mmol/L (136-145)
[2025-06-26 17:44] LABS: Alanine Aminotransferase 26.0 U/L (7-52); Albumin Globulin Ratio 1.0 (0.9-2); Alkaline Phosphatase 137.0 U/L (34-104); Blood Urea Nitrogen 47.0 mg/dl (6-23); Creatinine Clr Calc Pharmacy 31.6 ml/min; Globulin 3.3 gm/dl (2.5-4.0); Glucose 149.0 mg/dl (70-99(Fasting)); Total Protein 6.6 gm/dl (6.0-8.3)
[2025-06-26 18:09] LABS: Dohle Bodies 1+; Immature Granulocytes # (auto) 0.06 K/uL (0.01-0.20); Immature Granulocytes % (auto) 0.4 %; Toxic Vacuolation 1+
[2025-06-26] MEDS ORDERED: PANTOprazole 40 MG/10 ML SYR IV SCH (21:00)
[2025-06-26 22:07] LABS: Hematocrit (blood only) 31.8 % (37.0-47.0); Hemoglobin 10.8 g/dl (12.0-16.0)
[2025-06-26 22:25] LABS: Procalcitonin 52.50 ng/ml (0-0.5)
[2025-06-26 22:44] LABS: Mean Corpuscular Hemoglobin 30.8 pg (25.0-34.0); Mean Corpuscular Volume 90.6 fL (80.0-100.0); Platelet Count 44 K/uL (130-400); RDW Standard Deviation 45.3 fL (36.4-46.3); Red Blood Count 3.51 M/uL (4.20-5.40); White Blood Count 14.60 K/ul (4.8-10.8)
[2025-06-26 22:52] LABS: Lyme Screen Rflx Confirmation Negative (Negative)
[2025-06-26 23:03] LABS: Dohle Bodies 2+; Immature Granulocytes # (auto) 0.07 K/uL (0.01-0.20); Immature Granulocytes % (auto) 0.5 %; Toxic Vacuolation 1+
[2025-06-27] MEDS: PIPERACILLIN/TAZOBACTAM 4.5 GM/100 ML BAG IV ONE (00:56)
[2025-06-27] MEDS: FAMOTIDINE 20MG IV PUSH 20 MG/5 ML SYR IV SCH (00:57)
[2025-06-27 05:04] LABS: Alanine Aminotransferase 23.0 U/L (7-52); Albumin Globulin Ratio 0.9 (0.9-2); Alkaline Phosphatase 115.0 U/L (34-104); Anion Gap 10.0 (3-11); Bilirubin,Total 1.0 mg/dl (0.2-1.0); Blood Urea Nitrogen 53.0 mg/dl (6-23); Calcium 8.1 mg/dl (8.6-10.3); Carbon Dioxide 21.0 mmol/L (21-32); Chloride 107.0 mmol/L (98-107); Creatinine Clr Calc Pharmacy 34.8 ml/min; Globulin 3.1 gm/dl (2.5-4.0); Glucose 151.0 mg/dl (70-99(Fasting)); Potassium 3.7 mmol/L (3.5-5.1); Sodium 138.0 mmol/L (136-145); Total Protein 6.0 gm/dl (6.0-8.3)
[2025-06-27 05:24] LABS: INR 1.1 (0.9-1.1); Partial Thromboplastin Time 31 Seconds (21-31); Prothrombin Time 11.8 Seconds (9.0-12.0)
[2025-06-27 05:26] LABS: Dohle Bodies 1+; Hematocrit (blood only) 30.3 % (37.0-47.0); Hemoglobin 10.5 g/dl (12.0-16.0); Immature Granulocytes # (auto) 0.07 K/uL (0.01-0.20); Immature Granulocytes % (auto) 0.5 %; Mean Corpuscular Hemoglobin 31.3 pg (25.0-34.0); Mean Corpuscular Volume 90.2 fL (80.0-100.0); Platelet Count 40 K/uL (130-400); RDW Standard Deviation 44.7 fL (36.4-46.3); Red Blood Count 3.36 M/uL (4.20-5.40); Toxic Granulation 1+; Toxic Vacuolation 1+; White Blood Count 15.04 K/ul (4.8-10.8)
[2025-06-27 05:51] LABS: Fibrinogen > 860 mg/dl (184-400)
[2025-06-27] MEDS: PIPERACILLIN/TAZOBACTAM 4.5 GM/100 ML BAG IV SCH (06:28)
[2025-06-27 07:37] LABS: Base Excess VBG -2.0 mEq/L; HCO3 VBG 22 mmol/L; Oxygen Saturation VBG 94.7 %; PCO2 VBG 36 mmHg (38-50); PO2 VBG 65 mmHg; pH VBG 7.40 (7.36-7.41)
[2025-06-27] MEDS: PANTOprazole 40 MG/10 ML SYR IV SCH (08:07)
[2025-06-27 09:37] LABS: A calco-baum cmplx NotReported Not Detected (NotDetected); Bact fragilis Not Reported Not Detected (NotDetected); Blood Culture Id Panel See PCR Comment (NotDetected); C auris Not Reported Not Detected (NotDetected); CTX-M Resistant Gene Not Detected (NotDetected); Calbicans Not Reported Not Detected (NotDetected); Candida glabrata Not Reported Not Detected (NotDetected); Candida krusei Not Reported Not Detected (NotDetected); Cneoformans/gatti Not Reported Not Detected (NotDetected); Cparapsilosis Not Reported Not Detected (NotDetected); Ctropicalis Not Reported Not Detected (NotDetected); E cloacae compx Not Reported Not Detected (NotDetected); Efaecalis Not Reported Not Detected (NotDetected); Efaecium Not Reported Not Detected (NotDetected); Enterobacterales Not Reported DETECTED (NotDetected); Escherichia coli Not Reported Not Detected (NotDetected); H influenzae Not Reported Not Detected (NotDetected); IMP Resistant Gene Not Detected (NotDetected); K aerogenes Not Reported Not Detected (NotDetected); KPC Resistant Gene Not Detected (NotDetected); Koxytoca Not Reported Not Detected (NotDetected); Kpneumoniae grp Not Reported Not Detected (NotDetected); Lmonocyt Not Reported Not Detected (NotDetected); N meningitidis Not Reported Not Detected (NotDetected); NDM Resistant Gene Not Detected (NotDetected); OXA 48 Like Resistant Gene Not Detected (NotDetected); P aeruginosa Not Reported Not Detected (NotDetected); Proteus spp Not Reported DETECTED (NotDetected); Salmonella spp Not Reported Not Detected (NotDetected); Staph lugdunensis Not Reported Not Detected (NotDetected); Staph spp. Not Reported Not Detected (NotDetected); Staphaureus Not Reported Not Detected (NotDetected); Staphepi Not Reported Not Detected (NotDetected); Stenmaltophilia Not Reported Not Detected (NotDetected); Strep agal(GrpB) Not Reported Not Detected (NotDetected); Strep pneum Not Reported Not Detected (NotDetected); Strep pyog (GrpA) Not Reported Not Detected (NotDetected); Strep spp Not Reported Not Detected (NotDetected); VIM Resistant Gene Not Detected (NotDetected)
[2025-06-27 10:00] LABS: Enterobacterales DETECTED (NotDetected); Proteus species DETECTED (NotDetected)
--- NOTE | 2025-06-27 15:34 | Hospitalist Progress Note ---
Date of Service June 27, 2025 Assessment & Plan (1) Acute hypoxic respiratory failure: (2) Thrombocytopenia: (3) DIC (disseminated intravascular coagulation): (4) JAE (acute kidney injury): (5) Bacteremia: Plan -55 y/o female pt, PMH of Hypertension and Ureterolithiasis, reports to the ED with Acute SOB. #Acute Hypoxic Respiratory Failure - O2 saturation prior to admit status 71% stabilized and placed back on nasal canula with O2 sat of 91 to present -D-Dimer, Chest/abdomen CT, Chest XRay, Venous Dopler, X-ray, to rule out PE, AL CHF & HFpEF --Labs show infectious source in blood -- Proteus species Plan i. Nasal canula decreased to 1 L/min ii. Continue to monitor for breathing exasperation #Bacteremia / Sepsis -WBC count 15.04; Neutrophils at 13.42 -Proteus Sp. identified under Serology Plan i. Zosyn, started on 06/27 ii. Continue to monitor CBC and urinalysis #DIC -PT and aPTT, D dimer, Platelet Count, and fibrinogen evaluated for possible DIC -Infection process identified Plan i. Same as plan above # JAE -Cr. increase from 1.14 on 06/24 (Monday) to 2.54 () -Today Wednesday 06/27, downward trend 2.24 Plan i. BMP ordered ii. Continue to monitor as we treat infection Admission and Anticipated Discharge Date Admission Date: June 26, 2025 Supervising Physician Co-Signing Physician Notes Attending attestation Pt seen and examined in concert with Dr. Sutherland. In agreement with the documented findings as noted in the resident documentation with any exceptions or additions as noted here. Patient reports ongoing improvement in presenting shortness of breath and fatigue. VS as noted. On examination, S1/S2 nl RRR no MCG. CTAB. Abd NT/ND BS+ve Acute hypoxic respiratory failure - concern for fluid overload vs. mucous plugging - continue O2 by protocol. Repeat ABG today. Diuresis with furosemide. Trend BMP daily. Sepsis with gram negative bacteremia with likely urinary source 2/2 obstructive stone - Continue abx therapy follow up sensitivities for narrowing. Thrombocytopenia with concern for DIC - Trend PTT, PT/INR, platelets daily. Follow up peripheral smear. Improving overall, likely triggered by infection above. JAE - improving Else see resident documentation as noted. Subjective Pt. is 55 yo female pmx of HTN and Ureterolithiasis, reports to ED with SOB. She arrived 2 days ago to ED due to a kidney stone in the right ureter and was discharged the following day. At Bedside today, pt is AO3, with stable vitals. On Cardiac Auscultation S1 and S2 heard, no gallops, rubs or murmurs, and on Respiratory Auscultation, vesicular sounds in the upper lobes with slight ronchi in the lower lobs. No abdominal pain elicited on light and heavy touch. In addition, no fevers, chills, or myalgia noted. Pt is using a purewick but has not stooled yet. Review of Systems Review of Systems: All systems reviewed & are unremarkable except as noted in HPI & below Physical Exam Constitutional: WD/WN, vitals as above Eyes: PERRL, conjunctivae normal, anicteric sclerae ENMT: external ear and nose normal, oropharynx normal Mouth: + lip abn ormality Neck: trachea midline, no thyromegaly Respiratory: normal respiratory effort, lungs clear to auscultation Cardiovascular: RRR, no murmur, no edema Gastrointestinal (Abdomen): normal bowel sounds, soft, nontender, no hepatosplenomegaly Skin: no rashes, warm and dry Psychiatric: A+Ox3, euthymic affect Lymphatic: no cervical or axillary lymphadenopathy Results & Data Results & Data Vital Signs (Past 12 Hours) Vital Signs Temp Pulse Resp BP Pulse Ox O2 Del Method O2 Flow Rate 06/27/25 14:25 95 Nasal Cannula 2 06/27/25 12:00 36.4 C L 86 26 H 134/89 96 Nasal Cannula 3 06/27/25 08:00 36.4 C L 87 16 127/95 95 Room Air 3 Resident Activity Tracking Resident Involvement: Resident Care Provided Care Provided: Adult Hospital Medicine
[2025-06-27 17:25] LABS: Appearance Urine Clear (Clear); Bacteria Urine Automated None Seen (None Seen); Cast Urine Automated 0-2 /lpf (0-2); Glucose Urine UA Negative (Negative)
[2025-06-28 06:17] LABS: Hematocrit (blood only) 32.0 % (37.0-47.0); Hemoglobin 10.7 g/dl (12.0-16.0); Mean Corpuscular Hemoglobin 30.1 pg (25.0-34.0); Mean Corpuscular Volume 89.9 fL (80.0-100.0); Platelet Count 35 K/uL (130-400); RDW Standard Deviation 44.7 fL (36.4-46.3); Red Blood Count 3.56 M/uL (4.20-5.40); White Blood Count 16.49 K/ul (4.8-10.8)
[2025-06-28 06:56] LABS: INR 1.0 (0.9-1.1); Partial Thromboplastin Time 24 Seconds (21-31); Prothrombin Time 10.9 Seconds (9.0-12.0)
[2025-06-28 06:59] LABS: Dohle Bodies 1+; Immature Granulocytes # (auto) 0.31 K/uL (0.01-0.20); Immature Granulocytes % (auto) 1.9 %; Polychromasia 1+
[2025-06-28 07:11] LABS: Alanine Aminotransferase 18.0 U/L (7-52); Albumin Globulin Ratio 1.0 (0.9-2); Alkaline Phosphatase 108.0 U/L (34-104); Anion Gap 6.0 (3-11); Bilirubin,Total 0.9 mg/dl (0.2-1.0); Blood Urea Nitrogen 54.0 mg/dl (6-23); Calcium 8.3 mg/dl (8.6-10.3); Carbon Dioxide 25.0 mmol/L (21-32); Chloride 109.0 mmol/L (98-107); Creatinine Clr Calc Pharmacy 47.7 ml/min; Globulin 2.9 gm/dl (2.5-4.0); Glucose 107.0 mg/dl (70-99(Fasting)); Potassium 3.6 mmol/L (3.5-5.1); Sodium 140.0 mmol/L (136-145); Total Protein 5.8 gm/dl (6.0-8.3)
[2025-06-28 07:38] LABS: Fibrinogen 775 mg/dl (184-400)
[2025-06-28] MEDS ORDERED: ONDANSETRON INJ 2 MG/ML 2 ML VIAL IV PRN (11:40)
[2025-06-28] MEDS: cefTRIAXone SODIUM 2,000 MG/50 ML BAG IV STA (11:45)
[2025-06-28 13:21] VITALS: BP 141/92; PULSE 83; RESP 20; TEMP 98.1; O2SAT 97
--- NOTE | 2025-06-28 14:37 | Discharge Summary ---
Date of Service June 28, 2025 Admission HPI Per Admitting Provider Pt is a 55 y/o woman pmh of hypertension and hypoxia arrives to the ER this morning with SOB. Recent pmh is significant for an emergency room visit and hospital stay on 06/24 for abdominal pain, nausea and vomiting, due to a 4mm ureteral stone. Pt identified that she vomited 3 times yesterday, and that her last meal was Monday. She has not travelled anywhere in recent weeks, and her diet has not changed. Principal Diagnosis Bacteremia Discharge Exam Constitutional WD/WN, vitals as above Eyes PERRL, conjunctivae normal, anicteric sclerae ENMT external ear and nose normal, oropharynx normal Mouth: + lip abnormality Neck trachea midline, no thyromegaly Respiratory normal respiratory effort, lungs clear to auscultation Cardiovascular RRR, no murmur, no edema Gastrointestinal (Abdomen) normal bowel sounds, soft, nontender, no hepatosplenomegaly Skin no rashes, warm and dry Psychiatric A+Ox3, euthymic affect Lymphatic no cervical or axillary lymphadenopathy Discharge Data Allergies Allergy/AdvReac Type Severity Reaction Status Date / Time No Known Allergies Allergy Verified 06/26/25 09:17 Consultations 06/26/25 09:45 ED Decision to Admit Stat Ordered Studies 06/26/25 08:01 CT abd pelvis wo con Stat 06/26/25 10:08 CT angio chest PE protocol Stat 06/26/25 11:24 US leg [US venous doppler LE BI] Urgent Hospital Course (1) Acute hypoxic respiratory failure: (2) Thrombocytopenia: (3) DIC (disseminated intravascular coagulation): (4) JAE (acute kidney injury): (5) Bacteremia: Plan -55 y/o female pt, PMH of Hypertension and Ureterolithiasis, reports to the ED with Acute SOB. #Acute Hypoxic Respiratory Failure - Pt arrived to ED with SOB 71% O2 unable to resolve on nasal canula 4 l/m. BiPap used, and stablilized to 91% and maintained on nasal canula 4 L/min -PE, Cardiac, and DVT imaging and labs taken --- -Echo taken was unremarkable as to ventricular function, with ejection fraction of 55-60%. EKG findings suggested Sinus Tachycardia with unremarkable findings as to wave pattern -Nasal canula decreased to 2 L/min on ambulation or as needed, reevaluate at next PCP visit #Bacteremia / Sepsis -WBC count 15.04; Neutrophils at 13.42 -Proteus Sp. identified under Serology -Cefdinir 300 mg po q12h for 12 days -BNP to be taken mid week, and follow up with PCP at end of week #DIC -PT and aPTT, D dimer, Platelet Count, and fibrinogen evaluated for possible DIC -Infection process identified # JAE -Cr. increase from 1.14 on 06/24 (Monday) to 2.54 () -Today Wednesday 06/27, downward trend 2.24 -Hold Lisinopril and Meloxicam medications until after BMP results, and confer with PCP --BNP to be taken mid week, and follow up with PCP at end of week Total Time Total Time Spent Total Time Spent (In Minutes): See attending documentation Discharge Plan Discharge Items Patient Disposition: Home - Self-Care Reason For Visit: SOB Discharge Diagnosis: Bacteremia/Sepsis, Uretrolithiasis Condition on Discharge: Critical Activity: As commented below Non-emergency contact: Primary Care Provider Call non-emergency contact if: you have any medication questions and your symptoms worsen Follow-up/Referrals: Aury Alicea MD [Primary Care Provider] - Diet: Regular Ambulatory Orders: Basic Metabolic Panel (Routine) Timeframe: 3 Days Location: Determined by Patient Ordered By: Maricruz Alexander Attending Provider Instructions: You are being discharged from the hospital today. You will be given a prescription for cefdinir at 300 mg every 12 hrs by mouth for the next 10 days; You will also be given an oxygen tank to help you breathe. When you follow up with your primary care, they will check to see if you still need it. You will be given a prescription for a basic metabolic panel, for which you must have your blood taken. Please do so in 3 days and schedule, and schedule an appointment with your PCP thereafter to review such results In addition, please hold your home your medications lisinopril and meloxicam until the results of BMP are reviewed with your PCP If you have any other symptoms such as shortness of breath, chest pain, chills, fever, or worsening pain, please seek medical attention immediately. You were admitted to the hospital for SOB A discharge summary will be sent to your primary care physician to ensure continuity of care. Please bring this discharge summary with you to your next office appointment so that your provider can review it at that time. Medications: Your medication list has been reviewed and reconciled upon discharge to ensure accuracy and continuity of care. An updated list of all your medications is included with your hospital discharge paperwork. Please review this list closely and make note of any changes to your medications. - You should continue to: drink plenty of fluid and complete your medication until it is finished Follow up appointments: - Make a follow up appointment with your PCP within the next week. It is very important that you follow up with them shortly after discharge from the hospital. - Keep all of your follow up appointments as already scheduled. If you cannot make an appointment, notify your provider. CONTACT YOUR PRIMARY CARE PROVIDER if you experience any of the following: - Difficulty following your treatment plan - Difficulty taking any of your medications CALL 911 OR GO TO THE EMERGENCY DEPARTMENT if you experience any of the following: - Sudden, severe abdominal pain or nausea/vomiting - Severe chest pain or chest pain that radiates to your jaw or arm - Sudden, severe shortness of breath or difficulty breathing Pending Studies at Discharge: No Stand-Alone Forms: My [facility], Smoking Cessation Medications and DC Order Prescriptions: New cefdinir 300 mg capsule 300 mg PO Q12H Qty: 24 0RF Held meloxicam 7.5 mg tablet 7.5 mg PO DAILY PRN (Reason: Pain) Hold Instructions: Resume on 07/04/25. lisinopril 10 mg tablet 10 mg PO DAILY Hold Instructions: Resume on 07/04/25. Discharge Orders: Discharge Order (Routine); Ordered 06/28/25 Ordered By: Maricruz Sutherland Admission Data Admit Date/Time: 06/26/25 10:57 Attending Provider: Garrett Avendaño Admit Provider: Lu Tatum Primary Care Provider: Aury Alicea V. Other Providers: Ariana Leonardo Other Interventions: Discharge Summary Assessment (RN) Last Done: 06/28/25 17:10 Supervising Physician Co-Signing Physician Notes Attending attestation Pt seen and examined in concert with Dr. Sutherland. In agreement with the documented findings as noted in the resident documentation with any exceptions or additions as noted here. Patient reports improved SOB with some worsening with ambulation requiring oxygen therapy but otherwise approaching baseline. VS as noted. On examination, S1/S2 nl RRR no MCG. CTAB. Abd NT/ND BS+ve Acute hypoxic respiratory failure - concern for fluid overload vs. mucous plugging - ambulatory O2 assessment completed prior to discharge, going home w/ home O2 for re-assessment at follow up for ongoing need. Sepsis POA with proteus bacteremia with likely urinary source 2/2 obstructive stone - will complete course of PO cefdinir following discharge for 2 wk total course Thrombocytopenia with concern for DIC - PTT, PT/INR, platelets gradually improved throughout admission, likely secondary to infection above. JAE - continue to improve, encourage PO hydration and recommend repeat BMP at follow up. Else see resident documentation as noted. Total attending physician time spent with this patient's care on the day of discharge: 40 minutes.
== END 2025-06-28 17:16 | disposition home or self-care (01) | DRG 871 ==
LOC: ED 07:21 → SUATTDRO 10:57 → EDINP 10:57 → 2E 13:30
DX: D65 Disseminated intravascular coagulation [defibrination syndrome]; N20.1 Calculus of ureter; D69.59 Other secondary thrombocytopenia; N39.0 Urinary tract infection, site not specified; N17.9 Acute kidney failure, unspecified; I10 Essential (primary) hypertension; J96.01 Acute respiratory failure with hypoxia; Z79.899 Other long term (current) drug therapy; A41.59 Other Gram-negative sepsis